=== PATIENT | female | born 1995 | race Caucasian/White ===

== ENCOUNTER 2017-03-07 13:33 | Emergency (ER) | payer OTHER ==
[~2017-03-07] VITALS: Ht 177.8 cm; Wt 80.0 kg
[2017-03-07 13:36] VITALS: TEMP 36.9; Ht 177.8 cm; Wt 80.0 kg
[2017-03-07] MEDS ORDERED: OXYCODONE HCL IR 5 MG TAB (IMMEDIATE RELEASE) PO STA (13:55)
--- NOTE | 2017-03-07 14:22 | DIAGNOSTIC IMAGING REPORT ---
RIGHT ANKLE 3 VIEWS HISTORY: Right ankle pain. COMPARISON: None. FINDINGS: Diffuse soft tissue swelling. There is an oblique mildly displaced fracture within the lateral malleolus. This demonstrate up to 4 mm of lateral displacement. There is a fracture within the medial malleolus which demonstrates 3 mm of distraction. There is mild widening of the medial ankle joint. Probable fracture through the posterior malleolus. The lateral malleolus fracture also demonstrates 5 mm of posterior displacement. No radiopaque foreign bodies. IMPRESSION: Mildly displaced trimalleolar right ankle fracture as described above. There is mild widening of the ankle joint. Electronically signed by: Darrius Camarillo M.D. 03/07/2017 2:20 PM Dictated Date/Time: 03/07/2017 2:19 PM
[2017-03-07] MEDS ORDERED: OXYC1TAB3 PO (15:22)
--- NOTE | 2017-03-07 15:23 | EMERGENCY ROOM VISIT NOTE ---
ED Visit Note First contact with patient: 13:47 CHIEF COMPLAINT: Right ankle injury one hour ago HISTORY OF PRESENT ILLNESS: Patient is a 21-year-old female who presents emergency Department accompanied by her for evaluation of a ankle injury that she sustained about an hour ago. She was walking on a hill, believes that she stepped on a rock or some uneven ground, which caused her to twist the ankle, and nearly fall. She grabbed onto her as she fell. She had immediate onset of pain in her right ankle. She reports she felt and heard a popping sensation. She was subsequently unable to bear weight. Her had to carry her. She rates her pain a 10/10. She reports feeling numbness in her toes. She denies any other injuries. No knee pain. REVIEW OF SYSTEMS: Review of systems as per HPI. All other systems reviewed were negative. At least 6 systems reviewed. PMH: Electronic medical records are reviewed and summarized as above/below. See Problem List. SOCIAL HISTORY: Patient lives at home with her . She is from [place], but is here locally for work for an extended period of time. She is a smoker. PHYSICAL EXAM: Vital Signs: Reviewed Nurses' notes. MENTAL STATUS: Tearful, slightly anxious 21-year-old female who is awake and alert and in obvious distress due to her ankle injury. MUSCULOSKELETAL: Examination of the right ankle notes medial and lateral soft tissue swelling and joint effusion. There is no obvious deformity. Skin is intact. She has no pain over the proximal fibular head. She is pain over the medial and lateral malleolus. No pain into the metatarsal region. Dorsalis pedis and posterior serial of pulses are easily palpable. Sensation light touch is intact over the right lower extremity. EMERGENCY DEPARTMENT COURSE: The patient was medicated with oxycodone 10 mg orally for pain. Ice was applied to the ankle. X-rays were obtained and consistent with a trimalleolar fracture. Patient was reviewed with Kashif Torres PA-C/Dr. Simpson, who will see the patient next Friday in follow-up. Patient was placed in a short leg posterior and sugar tong splint. She was instructed on a nonweight bearing gait using crutches. Compartment syndrome and cast care were discussed. She was educated to elevate the ankle above the level of her heart as much as possible through the next 2-3 days to help reduce swelling. She is given oxycodone for pain. She rated her pain a 10/10 at discharge. Medication reconciliation: I attest that I have personally reviewed the patient' s current medication list. Blood pressure screening : Patient was found to have normal blood pressure on screening and does not require follow-up. Patient was reviewed in the [facility] Prescription Drug Monitoring Program, and there were no red flags noted. Her home [facility] is not available for inquiry. RIGHT ANKLE 3 VIEWS HISTORY: Right ankle pain. COMPARISON: None. FINDINGS: Diffuse soft tissue swelling. There is an oblique mildly displaced fracture within the lateral malleolus. This demonstrate up to 4 mm of lateral displacement. There is a fracture within the medial malleolus which demonstrates 3 mm of distraction. There is mild widening of the medial ankle joint. Probable fracture through the posterior malleolus. The lateral malleolus fracture also demonstrates 5 mm of posterior displacement. No radiopaque foreign bodies. IMPRESSION: Mildly displaced trimalleolar right ankle fracture as described above. There is mild widening of the ankle joint. Current/Historical Medications Scheduled PRN Oxycodone Ir (Roxicodone Ir), 1-2 TAB PO Q4H PRN for Severe Pain Allergies Coded Allergies: Diphenhydramine (Verified Allergy, Mild, HIVES, 03/07/17) Vital Signs Date Time Temp Pulse Resp B/P (MAP) Pulse Ox O2 Delivery O2 Flow Rate FiO2 03/07/17 15:41 56 16 135/70 99 03/07/17 13:36 36.9 72 18 138/69 100 Room Air Medications Administered Medications (Trade) Dose Ordered Sig/Alessandra Route Start Time Stop Time Status Last Admin Dose Admin Oxycodone HCl (Roxicodone Immediate Rel Tab) 10 mg NOW STAT PO 03/07/17 13:55 03/07/17 13:57 DC 03/07/17 14:06 10 MG Departure Information Impression Primary Impression: Trimalleolar fracture of right ankle Prescriptions Oxycodone Ir (Roxicodone Ir) 5 Mg Tab 1-2 TAB PO Q4H Y for Severe Pain, #30 TAB For Initial Treatment Prov: Dyan Ibanez PA 03/07/17 Referrals No Doctor, Assigned (PCP) Jonny Simpson D.O. Patient Instructions [facility] Additional Instructions DO NOT drive, drink alcohol, operate machinery, or perform dangerous activities today. You were given medications in the ER that can affect your ability to safely function or operate a vehicle. Oxycodone (OxyIR) 5mg: Take 1-2 pills every four hours for breakthrough pain. Avoid alcohol, operating machinery or dangerous equipment, working on ladders or roofs, DRIVING, or situations where being under the influence may be dangerous. It is recommended to use an [id number] stool softener such as Colace, 100mg twice daily while taking this medication to avoid constipation. Acetaminophen(Tylenol) may be used for fever or pain. Use 1000mg every six hours as needed. Avoid using more than 3000mg in a 24 hour period. This medication can be taken if you need to drive, work, or perform activities which may be dangerous when taking narcotic pain medication. Ice compresses for 20 minutes at a time four times daily for 2-3 days. Use the crutches as instructed with no weight on the right leg. Rest and elevate your injury. Do not get the splint wet. If your splint feels excessively tight, you have worsening pain, develop numbness or tingling, or your digits appear blue, loosen the chet wrap. Then reapply the chet wrap gently without removing the splint. If your symptoms are not quickly relieved return to the ER for re- evaluation. Continue current medications. Return to the ER immediately for any numbness, tingling, severe pain, extreme swelling in the extremity or as needed. Call [facility] (Dr. Simpson) on Friday to arrange follow up for your injury. Tell them you were seen in the ED today, have an ankle fracture, and Dr. Simpson wanted to see you in the office on Friday. Problem Qualifiers Primary Impression: Trimalleolar fracture of right ankle Encounter type: initial encounter Fracture type: closed Qualified Codes: S82.851A - Displaced trimalleolar fracture of right lower leg, initial encounter for closed fracture
[2017-03-07 15:41] VITALS: BP 135/70; PULSE 56; O2SAT 99
[2017-03-08] MEDS ORDERED: ACET-1256 PO (18:21)
[2017-03-08] MEDS ORDERED: OXYC15TA89 PO (19:37)
[2017-03-12] MEDS ORDERED: HYDR-5688 PO (13:07)
== END 2017-03-07 15:43 | disposition home or self-care (01) ==
LOC: C.EDB 13:35 → C.EDD 15:43
DX: S82.851A Displaced trimalleolar fracture of right lower leg, initial encounter for closed fracture (principal); X58.XXXA Exposure to other specified factors, initial encounter; F17.200 Nicotine dependence, unspecified, uncomplicated; Z88.8 Allergy status to other drugs, medicaments and biological substances

== ENCOUNTER 2017-03-08 18:13 | Emergency (ER) | payer OTHER ==
[~2017-03-08] VITALS: Ht 177.8 cm; Wt 80.0 kg
[~2017-03-08 18:13] MED LIST: OXYC1TAB3 PO
[2017-03-08 18:15] VITALS: TEMP 37.3; Ht 177.8 cm; Wt 80.0 kg
[2017-03-08] MEDS ORDERED: ACET-1256 PO (18:21)
[2017-03-08] MEDS ORDERED: KETOROLAC TROMETHAMINE 60 MG/2 ML VIAL IM STA (18:43)
[2017-03-08] MEDS ORDERED: HYDROmorphone INJ 1 MG/ML SYR IM STA (18:43)
[2017-03-08] MEDS ORDERED: ONDANSETRON 4MG OD TAB PO ONE (18:45)
[2017-03-08] MEDS ORDERED: OXYCODONE HCL 20 MG TABCR (OXYCONTIN) PO ONE (19:30)
[2017-03-08] MEDS ORDERED: OXYC15TA89 PO (19:37)
--- NOTE | 2017-03-08 19:39 | EMERGENCY ROOM VISIT NOTE ---
ED Visit Note First contact with patient: 18:20 CHIEF COMPLAINT: Uncontrolled right ankle pain after fracture yesterday HISTORY OF PRESENT ILLNESS: Patient is a 21-year-old female who returns the emergency department, they were her significant other for evaluation of right ankle pain. Patient was seen and evaluated by myself yesterday after she fell, sustaining a nondisplaced right trimalleolar fracture. Patient reports difficulty controlling her pain. She rates her discomfort a 10/10. She was initially using oxycodone 10 mg every 4 hours, but increased this to every 3 hours. She has also used acetaminophen. This is not controlling her pain. She reports that she has been elevating the ankle and icing as instructed. REVIEW OF SYSTEMS: Review of systems as per HPI. All other systems reviewed were negative. At least 6 systems reviewed. PMH: Electronic medical records are reviewed and summarized as above/below. See Problem List. SOCIAL HISTORY: Patient is from [place], but is here locally for work. Nonsmoker. She is presently staying in a hotel with her significant other. PHYSICAL EXAM: Vital Signs: Reviewed Nurse's notes. MENTAL STATUS: Patient is a pleasant, well-appearing 21-year-old white female who is awake and alert and in no acute distress. MUSCULAR skeletal: Right ankle is immobilized in a splint. This was removed and ankle was reexamined. She has significant soft tissue swelling over both the medial and lateral aspect of the ankle, she now has significant ecchymosis noted. There is slight swelling in the dorsum of the foot and into the toes. She can wiggle the toes slightly, sensation light touch is intact over the right lower extremity. Dorsalis pedis and posterior tibialis pulses are easily palpable. There is a blister noted over the anterior lateral aspect of the ankle. The calf is soft and nontender. EMERGENCY DEPARTMENT COURSE: The patient was seen and assessed as above. Splint was removed. Patient has increased swelling and bruising which is to be expected. She does not have any findings concerning for compartment syndrome. I do not suspect DVT. She was treated with Dilaudid 1 mg and Toradol 60 mg IM with Zofran 4 mg ODT. A new splint was applied. Splint placement was verified by me and was satisfactory. Patient remained neurovascularly intact. Pain management options were discussed with the patient. She was given OxyContin 20 mg orally in the emergency department. She will be given a three-day supply of OxyContin 15 mg tablets to take scheduled every 12 hours, and will continue to use the OxyIR for breakthrough pain. The patient expressed understanding of this and was agreeable. She reported that her pain had improved, however still rated her pain a 10/10 at discharge. Patient was reviewed in the [facility] Prescription Drug Monitoring Program, and there were no red flags noted. Blood pressure screening : Patient was found to have normal blood pressure on screening and does not require follow-up. Medication reconciliation: I attest that I have personally reviewed the patient' s current medication list. Current/Historical Medications Scheduled Oxycodone Hcl (Oxycontin), 15 MG PO Q12 Scheduled PRN Acetaminophen (Tylenol), 1,000 MG PO DAILY PRN for Pain Oxycodone Ir (Roxicodone Ir), 1-2 TAB PO Q4H PRN for Severe Pain Allergies Coded Allergies: Diphenhydramine (Verified Allergy, Mild, HIVES, 03/08/17) Vital Signs Date Time Temp Pulse Resp B/P (MAP) Pulse Ox O2 Delivery O2 Flow Rate FiO2 03/08/17 19:56 67 16 146/67 100 Room Air 03/08/17 18:15 37.3 75 18 118/72 98 Room Air Medications Administered Medications (Trade) Dose Ordered Sig/Alessandra Route Start Time Stop Time Status Last Admin Dose Admin Ondansetron HCl (Zofran Odt) 4 mg ONE ONCE PO 03/08/17 18:45 03/08/17 18:46 DC 03/08/17 18:56 4 MG Ketorolac Tromethamine (Toradol Inj) 60 mg NOW STAT IM 03/08/17 18:43 03/08/17 18:45 DC 03/08/17 18:57 60 MG Hydromorphone HCl (Dilaudid Inj) 1 mg NOW STAT IM 03/08/17 18:43 03/08/17 18:45 DC 03/08/17 18:56 1 MG Oxycodone HCl (Oxycontin Tab) 20 mg NOW ONCE PO 03/08/17 19:30 03/08/17 19:36 DC 03/08/17 19:55 20 MG Departure Information Impression Primary Impression: Trimalleolar fracture of right ankle Prescriptions Oxycodone Hcl (OXYCONTIN) 15 Mg Tab 15 MG PO Q12, #6 TAB For Initial Treatment Prov: Dyan Ibanez PA 03/08/17 Referrals No Doctor, Assigned (PCP) Patient Instructions [facility] Additional Instructions DO NOT drive, drink alcohol, operate machinery, or perform dangerous activities today. You were given medications in the ER that can affect your ability to safely function or operate a vehicle. Oxycontin 15mg: Take 1 pill every 12 hours. Avoid alcohol, operating machinery or dangerous equipment, working on ladders or roofs, DRIVING, or situations where being under the influence may be dangerous. It is recommended to use an [id number]-hahbkfd stool softener such as Colace, 100mg twice daily while taking this medication to avoid constipation. Continue Oxy IR every 4 hours as previously prescribed. Ibuprofen(Motrin, Advil) may be used for fever or pain. Use 600mg every six hours as needed. Take with food. Avoid using more than 2400mg in a 24 hour period. Do not use 2400mg per day for more than three consecutive days without physician direction. Prolonged inappropriate use can lead to stomach upset or ulcers. (AND/OR) Acetaminophen(Tylenol) may be used for fever or pain. Use 1000mg every six hours as needed. Avoid using more than 3000mg in a 24 hour period. Follow all other instructions from yesterday. Follow up with orthopedics on Friday. Problem Qualifiers Primary Impression: Trimalleolar fracture of right ankle Encounter type: subsequent encounter Fracture type: closed
[2017-03-08 19:56] VITALS: BP 146/67; PULSE 67; O2SAT 100
[2017-03-12] MEDS ORDERED: HYDR-5688 PO (13:07)
== END 2017-03-08 20:02 | disposition home or self-care (01) ==
LOC: C.EDB 18:14 → C.EDD 20:02
DX: S82.851D Displaced trimalleolar fracture of right lower leg, subsequent encounter for closed fracture with routine healing (principal); W19.XXXD Unspecified fall, subsequent encounter

== ENCOUNTER 2017-03-14 06:56 | Day surgery (SDC) | payer SELFPAY ==
[2017-03-12 13:07] VITALS: BMI 25.0
--- NOTE | 2017-03-13 23:04 | History and Physical ---
History & Physical Date Mar 13, 2017. Chief Complaint right ankle pain History of Present Illness The patient is a 21 year old female with complaints of right ankle pain after a fall on 03.07.17. She was helping a friend do some work when she had a fall and an injury to the right ankle. She was unable to ambulate and was taken to [facility] ER for x-rays. She was placed in a splint and referred for surgical evaluation. Past Medical/Surgical History Medical Problems: (1) No Known Active Medical Problems Past surgical hx: None + Tobacco user Allergies Coded Allergies: Diphenhydramine (Verified Allergy, Mild, HIVES, 03/12/17) Home Medications Scheduled PRN Acetaminophen (Tylenol), 1,000 MG PO DAILY PRN for Pain Hydrocodone/Acetaminophen 5MG/325MG ([place] 5MG/325MG), 1 TAB PO TID PRN for Pain Physical Examination Skin: warm/dry, no rash Eyes: normal inspection ENT: normal ENT inspection, pharynx normal Head: normocephalic, atraumatic Neck: supple, no adenopathy, trachea midline Respiratory/Chest: lungs clear, normal breath sounds, no respiratory distress Cardiovascular: regular rate, rhythm, no murmur Abdomen / GI: normal bowel sounds, non tender Extremities: + pertinent finding (Right ankle: swelling of the ankle. Tender at the medial and lateral ankle. No ROM or strength testing performed.) Neurologic/Psych: no motor/sensory deficits, alert, oriented x 3 Diagnosis Right ankle trimalleolar fx. Plan of Treatment Recommend an ORIF right trimalleolar ankle fx. All potential risks, benefits, complications, alternatives, and rehab have been discussed with the patient and she wishes to proceed. She will be scheduled on 03.14.17 with ASA 81 mg BID x 4-6 wks for DVT prophylaxis.
[~2017-03-14] VITALS: Ht 177.8 cm; Wt 79.5 kg
[~2017-03-14 06:56] MED LIST changes: +ACET-1256 PO; +CEFAZOLIN 1000MG/55 ML D5W IV SCH; +HYDR-5688 PO; +LACTATED RINGER'S 1000ML 1,000 ML IV SCH; -OXYC1TAB3 PO; +ROPIVACAINE 0.5% 5 MG/ML 30 ML VIAL ONE
[2017-03-14] MEDS ORDERED: FENTANYL CITRATE INJ 50 MCG/1 ML 2 ML VIAL ONE ×2 (07:04→08:56)
[2017-03-14] MEDS ORDERED: MIDAZOLAM HCL 1 MG/ML 2ML VIAL ONE ×2 (07:04→08:23)
[2017-03-14] MEDS ORDERED: KETAMINE HCL INJ 50 MG/ML 10 ML VIAL ONE (07:05)
[2017-03-14 07:24] VITALS: BP 151/90; PULSE 76; TEMP 37; O2SAT 97; Ht 177.8 cm; Wt 79.5 kg
[2017-03-14 07:25] LABS: BASO % 0.2 %; BASO ABS # 0.02 K/uL (0-0.2); EOS % 0.9 %; HEMATOCRIT 38.3 % (37-47); IG% 0.2 %; LYMPH % 20.6 %; LYMPH ABS # 1.97 K/uL (1.2-3.4); MEAN CORPUSCULAR HEMOGLOBIN 32.8 pg (25-34); MEAN PLATELET VOLUME 9.5 fL (7.4-10.4); MONO % 5.9 %; NEUT % 72.2 %; PLATELET COUNT 275 K/uL (130-400); RED BLOOD COUNT 4.12 M/uL (4.2-5.4); WHITE BLOOD COUNT 9.56 K/uL (4.8-10.8)
[2017-03-14 07:32] LABS: COMPLETE YES; MEAN CORPUSCULAR HGB CONC 35.2 g/dl (32-36)
[2017-03-14 07:36] LABS: PARTIAL THROMBOPLASTIN RATIO 1.1; PROTHROMBIN TIME (PATIENT) 10.5 SECONDS (9.0-12.0)
--- NOTE | 2017-03-14 07:42 | History & Physical Bridge Note ---
H&P Re-Evaluation Bridge Note: I have examined the patient, reviewed the History & Physical and in the interval since the performance of the History & Physical I have noted the following changes of clinical significance: No changes noted
[2017-03-14] MEDS ORDERED: [UNRECOGNIZED DRUG - OTHER] ID (07:43)
[2017-03-14] MEDS ORDERED: BUPIVACAINE 0.25% 30 ML VIAL ONE (08:08)
[2017-03-14] MEDS ORDERED: LACTATED RINGER'S 1000ML 1,000 ML IV SCH (08:10)
[2017-03-14] MEDS ORDERED: ACETAMINOPHEN 1000 MG/100 ML IV IV ONE (08:15)
[2017-03-14] MEDS ORDERED: ONDANSETRON INJ 2 MG/ML 2 ML VIAL IV PRN ×2 (08:15→10:45)
[2017-03-14] MEDS ORDERED: EpHEDrine SULFATE INJ 50 MG/ML AMP IV PRN (08:15)
[2017-03-14] MEDS ORDERED: PROMETHAZINE HCL INJ 12.5 MG in SODIUM CHLORIDE 0.9% 50ML 50 ML IV PRN (08:15)
[2017-03-14] MEDS ORDERED: ATROPINE SULFATE 0.1 MG/ML 5ML SYR IV PRN (08:15)
[2017-03-14] MEDS ORDERED: HYDROmorphone INJ 2 MG/ML SYR/VIAL ONE (08:55)
[2017-03-14] MEDS ORDERED: LIDOCAINE HCL 2% 2 ML VIAL (20MG/ML) ONE (09:58)
[2017-03-14] MEDS ORDERED: ONDANSETRON INJ 2 MG/ML 2 ML VIAL ONE (09:58)
[2017-03-14] MEDS ORDERED: DEXAMETHASONE SOD INJ 4 MG/ML VIAL ONE (09:58)
[2017-03-14] MEDS ORDERED: PROPOFOL IV EMULSION 10 MG/ML 20 ML VIAL IV ONE (09:58)
--- NOTE | 2017-03-14 10:12 | DIAGNOSTIC IMAGING REPORT ---
FLUOROSCOPIC IMAGES OF THE RIGHT ANKLE CLINICAL HISTORY: Right ankle trimalleolar fracture. COMPARISON STUDY: Right ankle radiographs March 07, 2017. Fluoroscopy time: 39 seconds. FINDINGS: 3 fluoroscopic images demonstrate placement of distal right fibular plate and screws as well as 2 medial malleolar screws. The hardware fixates the distal right tibial and fibular fractures. Fracture alignment has improved and appears near anatomic. No ankle mortise widening is identified. There are no unexpected radiopaque foreign bodies. IMPRESSION: Expected findings following right ankle internal fixation. Electronically signed by: Robert Reese M.D. 03/14/2017 10:10 AM Dictated Date/Time: 03/14/2017 10:09 AM
[2017-03-14] MEDS ORDERED: BACITRACIN 50000 UNIT VIAL IR ONE (10:13)
[2017-03-14] MEDS ORDERED: KETOROLAC TROMETHAMINE 30 MG/ML VIAL ONE (10:18)
--- NOTE | 2017-03-14 10:21 | [facility] Post Operative Brief Note ---
Immediate Operative Summary Operative Date Mar 14, 2017. Pre-Operative Diagnosis Right ankle closed trimalleolar fracture Post-Operative Diagnosis Right ankle closed trimalleolar fracture Procedure(s) Performed Right Ankle Trimalleolar Fracture Open Reduction Internal Fixation Surgeon Dr. Simpson [employer] Lead Surgeon(s) Kashif Torres PA-C Estimated Blood Loss 5 ml Findings See dict Specimens none per surgeon Drains None Anesthesia GLMA w/ popliteal block Complication(s) None Disposition Recovery Room / PACU
[2017-03-14] MEDS ORDERED: OXYCODONE HCL IR 5 MG TAB (IMMEDIATE RELEASE) PO PRN (10:45)
[2017-03-14] MEDS ORDERED: KETOROLAC TROMETHAMINE 15 MG/ML VIAL IV. PRN (10:45)
[2017-03-14] MEDS ORDERED: MoRPHine SULFATE 2 MG/ML CARP IV PRN (10:45)
[2017-03-14] MEDS ORDERED: OXYC-57 PO (10:46)
[2017-03-14] MEDS: FENTANYL CITRATE INJ 50 MCG/1 ML 2 ML VIAL IV PRN ×6 (10:47→12:05)
--- NOTE | 2017-03-14 10:50 | Discharge Instructions ---
Discharge Instructions Date of Service Mar 14, 2017. Visit Reason for Visit: Displaced Trimalleolar Fracture of Right Lower Leg Discharge Discharge Diagnosis / Problem: Right Trimalleolar Ankle Fracture Discharge Goals Goal(s): Decrease discomfort, Improve function Activity Recommendations Activity Limitations: per Instructions/Follow-up section Weightbearing Status: Right non-weightbearing Anesthesia . Post Anesthesia Instructions: If you have had General Anesthesia or IV Sedation: * Do not drive today. * Resume driving when surgeon permits. * Do not make important decisions or sign legal documents today. * Call surgeon for: 1. Temperature elevations greater than 101 degrees F. 2. Uncontrollable pain. 3. Excessive bleeding. 4. Persistent nausea and vomiting. 5. Medication intolerance (nausea, vomiting or rash). * For nausea and vomiting use only clear liquids such as: tea, soda, bouillon until nausea subsides, then gradually increase diet as tolerated. * If you have any concerns or questions, call your surgeon's office. If physician is unavailable and it is an emergency, call 911 or go to the nearest emergency room. . Instructions / Follow-Up Instructions / Follow-Up ACTIVITY RECOMMENDATIONS: * You are not to put any weight on the right foot/ankle. Use crutches for ambulation. SPECIAL CARE INSTRUCTIONS: * Some drainage onto the dressing is normal and is no cause for alarm. * Some swelling is natural especially after walking. When resting, keep your foot elevated above the level of your heart. * Call the doctor's office at if you notice increased drainage, fever over 101 degrees F. or severe constant pain. * Keep the foot elevated on at least 2 pillows when at rest. BANDAGE: * Leave bandage/cast in place unless otherwise directed. * Keep bandage/cast dry at all times. FOLLOW UP VISIT: If appointment is not already scheduled: Please call [facility] [place] to make a follow-up appointment after your surgery at . You will need to see an Orthopedic doctor within 10 to 14 days from the day of surgery for a wound check. Diet Recommendations Recommended Home Diet: resume previous diet Procedures Procedures Performed: Right Ankle Trimalleolar Fracture Open Reduction Internal Fixation Pending Studies Studies pending at discharge: no Medical Emergencies . Who to Call and When: Medical Emergencies: If at any time you feel your situation is an emergency, please call 911 immediately. . Non-Emergent Contact Non-Emergency issues call your: Surgeon Call Non-Emergent contact if: temperature is above 101.5, your pain is not controlled, your pain is worsening, wound has increased drainage, wound has increased redness . . "Provider Documentation" section prepared by Kashif Torres. . [place] Drug Monitoring Program Search Results: patient reviewed within database, no issues identified
--- NOTE | 2017-03-14 11:02 | OPERATIVE REPORT ---
DATE OF OPERATION: 03/14/2017 PREOPERATIVE DIAGNOSIS: Right closed trimalleolar ankle fracture. POSTOPERATIVE DIAGNOSIS: Same. PROCEDURE: Open reduction internal fixation right trimalleolar ankle fracture. SURGEON: Jonny Simpson DO PASSENGER BRAKEMAN: Kashif Torres PA-C who was present for patient positioning, sterile prep and drape, management of retractors and instruments. He was present through the critical portions of the case including wound closure, application of sterile dressing and transport of the patient to recovery. ANESTHESIA: General LMA with popliteal block. SPECIMENS: None. DRAINS: None. COMPLICATIONS: None. BLOOD LOSS: 5 mL. PERTINENT HISTORY: This is a 21-year-old female who sustained a twisting injury to her right ankle. She has been splinted and seen in the office, radiographs reviewed demonstrating trimalleolar ankle fracture with subluxation and widening of the joint. The patient was then scheduled for surgery as indicated. All potential risks, benefits, complications, alternatives, rehab, potential for incomplete relief of symptoms, need for further surgery, DVT, PE, , persistent pain, swelling, scarring, weakness, neurovascular injury, wound complications, hardware failure, nonunion, malunion were discussed with patient. The patient decided to proceed with the procedure as indicated. DESCRIPTION OF PROCEDURE: After popliteal block was administered, patient was then taken to the operative suite, was placed in the supine position and tourniquet was applied high on the right thigh over cast padding. Consent was reviewed and operative site was identified. The patient was anesthetized, LMA was placed. Next, right lower extremity was then sterilely prepped and draped in usual fashion, elevated and exsanguinated with an Esmarch bandage and tourniquet inflated to 300 mmHg. Next, a 15 blade scalpel was used to make an incision centered over the lateral malleolus of the right ankle. Incision was then deepened through subcutaneous tissue. Meticulous hemostasis was achieved with electrocautery. Full thickness skin flaps were developed with a 15 blade scalpel followed by identification of the peroneal tendons which were then retracted and protected. Periosteum overlying the fracture was then incised in line with the skin incision and carefully elevated from the fracture site. Periosteal tissue was then removed from the interspace between the fracture fragments, irrigated with a sterile normal saline with bacitracin and use of a dental pick to remove any clotted blood. Next, the bone reduction forceps were then used to reduce the fracture and then a single 3.5 mm lag screw was used to stabilize and compress the primary fracture line in anatomic position under live fluoroscopic assistance. Next, a 7-hole 1/3 tubular Synthes plate was then contoured and then firmly affixed to the lateral aspect of the lateral malleolus with multiple bone screws under live fluoroscopic assistance. This achieved anatomic reduction of the lateral malleolus and stabilized the ankle mortise. Stress views were negative for subluxation. Next, the 15 blade was then used to make an incision centered over the medial malleolus with a small curvilinear radius of curvature, 15 blade was then used to carefully dissect the subcutaneous tissue. Meticulous hemostasis was achieved with electrocautery. The saphenous vein was retracted and protected. Next, using scissors and forceps, careful dissection was performed down to the periosteum. The torn periosteum was then resected at the fracture site, irrigated with sterile normal saline and the 2 portions of the medial malleolus which were fractured were then reduced with a dental pick and then pinned in place with 2 cannulated pins under live fluoroscopic assistance. This was then followed by placement of two 4.0 cannulated screws which were placed under live fluoroscopic assistance, achieving anatomic reduction and fixation of the medial malleolus. Next, all wounds were then copiously irrigated with sterile normal saline with bacitracin. The deep soft tissue was closed over the lateral malleolus as well as over the medial malleolus using 2-0 Vicryl sutures. Next, the dermis was closed using buried interrupted 3-0 Vicryl sutures. This was then followed by closure of the skin with 4-0 nylon sutures. Final radiographs obtained in AP and lateral projections followed by application of a sterile compressive dressing and a bulky Jose Martin Dodson plaster splint overwrapped with an Dontrell wrap. The foot was held in neutral dorsiflexion until firm and then the tourniquet was then removed. The patient was awakened and taken to recovery in stable condition. I attest to the content of the Intraoperative Record and any orders documented therein. Any exception s are noted below.
[2017-03-14] MEDS: HYDROmorphone INJ 1 MG/ML SYR IV PRN ×4 (11:04→11:19)
[2017-03-14] MEDS ORDERED: BUPIVACAINE 0.5 % 5 MG/1 ML PF 10ML VIAL ONE (11:27)
[2017-03-14] MEDS ORDERED: FENTANYL CITRATE INJ 50 MCG/1 ML 2 ML VIAL IV PRN (12:00)
[2017-03-14] MEDS ORDERED: HYDROmorphone INJ 0.5 MG/0.5 ML SYR IV ONE (12:00)
[2017-03-14] MEDS ORDERED: HYDROmorphone INJ 0.5 MG/0.5 ML SYR ONE (12:02)
--- NOTE | 2017-03-14 12:30 | Anesthesiology Progress Note ---
Anesthesia Post Op Note Date & Time Mar 14, 2017 at 12:30 Vital Signs Pain Intensity: 3 Vital Signs Past 12 Hours Date Time Temp Pulse Resp B/P (MAP) Pulse Ox O2 Delivery O2 Flow Rate FiO2 03/14/17 11:21 56 13 136/75 97 03/14/17 11:21 56 13 03/14/17 11:16 58 12 140/69 96 03/14/17 11:16 57 12 03/14/17 11:11 84 12 03/14/17 11:11 83 12 135/88 97 03/14/17 11:06 73 13 03/14/17 11:06 70 13 156/81 100 03/14/17 11:05 71 16 03/14/17 11:05 69 16 99 03/14/17 11:01 150/91 03/14/17 11:00 66 15 03/14/17 11:00 64 15 100 03/14/17 10:56 123/90 03/14/17 10:55 74 16 03/14/17 10:55 76 16 100 03/14/17 10:51 157/94 03/14/17 10:50 74 16 03/14/17 10:50 74 16 100 03/14/17 10:46 160/89 03/14/17 10:45 77 20 03/14/17 10:45 77 20 99 03/14/17 10:41 159/88 03/14/17 10:40 71 22 03/14/17 10:40 70 22 03/14/17 10:35 36.4 79 16 152/82 100 Mask 10 03/14/17 10:35 152/82 03/14/17 07:24 37.0 76 16 151/90 (110) 97 Room Air Notes Mental Status: alert / awake / arousable, participated in evaluation Pt Amnestic to Procedure: Yes Nausea / Vomiting: adequately controlled Pain: adequately controlled Airway Patency, RR, SpO2: stable & adequate BP & HR: stable & adequate Hydration State: stable & adequate Anesthetic Complications: no major complications apparent
[2017-03-14 12:45] VITALS: BP 119/69; PULSE 58; TEMP 37; O2SAT 98
[2017-03-14 13:15] VITALS: BP_SYST 119; BP_SYST 153; BP_DIAS 63; BP_DIAS 69; PULSE 58; PULSE 62; TEMP 36.8; TEMP 37; O2SAT 98
[2017-03-14 13:45] VITALS: BP 132/60; PULSE 63; TEMP 36.8; O2SAT 96
== END 2017-03-14 13:57 | disposition home or self-care (01) ==
LOC: C.ACU 06:56
PROVIDERS: ATTEND Orthopaedic Surgery Sports Medicine
DX: S82.851A Displaced trimalleolar fracture of right lower leg, initial encounter for closed fracture (principal); W19.XXXA Unspecified fall, initial encounter